=== PATIENT | female | born 1955 | race Caucasian/White ===

== ENCOUNTER 2017-04-17 11:14 | Outpatient (CLI) | payer OTHER ==
--- NOTE | 2017-04-17 14:55 | RAD ---
THREE VIEWS LUMBAR SPINE: INDICATION: Low back pain radiating into right hip. FINDINGS: There is postsurgical change of a posterior interbody fusion at L4-5. The instrumentation projects i n the expected position without gross evidence of complication. 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 There is a prominent renal stone seen within the right mid kidney patrick uring 1.2 cm. Surgical clips are seen within the right upper quadrant consistent with prior cholecys tectomy. There is moderate degenerative disk disease at L3-4 and L2-3. Spinal alignment is preserve d. No acute finding is evident. IMPRESSION: 1. Mild to moderate spondylosis of the lumbar spine. 2. Postsurgical change at L4-5 interbody fusion. 3. Right nephrolithiasis. 4. Cholecystectomy. POS: [facility]
== END 2017-04-17 11:15 | disposition home or self-care (01) ==
LOC: MADRAD 11:14
PROVIDERS: ATTEND Physician Assistant
DX: M54.41 Lumbago with sciatica, right side (principal); M47.816 Spondylosis without myelopathy or radiculopathy, lumbar region; N20.0 Calculus of kidney; Z90.49 Acquired absence of other specified parts of digestive tract; Z98.1 Arthrodesis status
CPT/HCPCS: 72100

== ENCOUNTER 2023-02-08 11:39 | Emergency (ER) | payer MEDICARE, BC ==
[~2023-02-08 11:39] MED LIST: Iopamidol 370 76% 200 ML VIAL ONE
[2023-02-08 12:25] LABS: #Basophils 0.1 thou/uL (0.0-0.2); #Eosinphils 0.4 thou/uL (0.0-0.7); #Lymphocytes 2.4 thou/uL (1.20-3.40); #Monocytes 0.9 thou/uL (0.11-0.59); #Neutrophils 5.6 thou/uL (1.40-6.50); %Basophils 1.4 % (0.0-1.0); %Eosinophils 3.8 % (0.0-10.0); %Lymphocytes 25.6 % (21.0-51.0); %Monocytes 9.5 % (0.0-10.0); %Neutrophils 59.7 % (42.0-75.0); Hematocrit 45.5 % (36.0-47.0); Hemoglobin 14.5 g/dL (12.0-16.0); Mean Corpuscular HGB CONC 31.9 g/dL (32.0-36.0); Mean Corpuscular Hemoglobin 29.7 pg (27.0-31.0); Mean Corpuscular Volume 92.9 fl (78.0-98.0); Mean Platelet Volume 8.7 fL (7.4-10.4); Platelet Count 258 10x3/uL (130-400); RBC Distribution Width 12.2 % (11.5-14.5); Red Blood Cell (RBC) Count 4.89 mill/uL (4.20-5.40); White Blood Cell (WBC) Count 9.3 10x3/uL (4.8-10.8)
[2023-02-08 12:29] LABS: Prothrombin Time 13.1 sec (12.0-14.7)
[2023-02-08 12:30] LABS: PTT 29.1 sec (22.9-36.1)
[2023-02-08 12:38] LABS: ALT (SGPT) 22 U/L (8-55); AST (SGOT) 17 U/L (5-34); Albumin 3.9 g/dL (3.4-4.8); Alkaline Phosphatase 134 U/L (40-110); Anion Gap 17 mmol/L (10-20); BUN (Urea Nitrogen) 18 mg/dL (9.8-20.1); Bilirubin, Total 0.5 mg/dL (0.2-1.2); Calc. Creatinine Clearance 0 mL/min (70-130); Calcium 9.5 mg/dL (7.8-10.44); Carbon Dioxide 25 mmol/L (23-31); Chloride 104 mmol/L (98-107); Estimated GFR 63; Globulin 3.5 g/dL (2.4-3.5); Glucose 110 mg/dL (80-115); Protein, Total 7.4 g/dL (5.8-8.1); Sodium 142 mmol/L (136-145)
[2023-02-08] MEDS ORDERED: methylPREDNISolone Sod Succ/PF 125 MG/2 ML VIAL ONE (13:31)
[2023-02-08] MEDS ORDERED: Ketorolac Tromethamine 30 MG/ML VIAL ONE (13:31)
[2023-02-08 13:59] LABS: Troponin I Less than 0.010 ng/mL (< 0.028)
== END 2023-02-08 15:00 | disposition home or self-care (01) ==
LOC: MADERS 11:39
DX: J20.9 Acute bronchitis, unspecified (principal); J42 Unspecified chronic bronchitis; E03.9 Hypothyroidism, unspecified; Z79.899 Other long term (current) drug therapy
CPT/HCPCS: 71046; 71275; 80053; 83605; 83880; 84484; 85025; 85610; 85730; 87040; 87804; 93005; 94760; 96374; 96375; J1885; J2930; J7612